=== PATIENT | female | born 1975 | race Caucasian/White ===

== ENCOUNTER 2017-01-06 15:36 | Inpatient (IN) | payer MEDICAID, OTHER ==
[~2017-01-06] VITALS: Ht 182.9 cm; Wt 85.3 kg
[2017-01-06] MEDS ORDERED: FERR325T6 PO (16:19)
[2017-01-06] MEDS ORDERED: PNV1TABL76 PO (16:19)
[2017-01-06] MEDS: LACTATED RINGERS 1,000 ML IV SCH ×2 (18:37→20:54)
[2017-01-06 19:09] LABS: CLARITY URINE CLEAR (CLEAR); COLOR URINE YELLOW (YELLOW); GLUCOSE URINE NEGATIVE (NEGATIVE); KETONES URINE 3+ (NEGATIVE); LEUKOCYTE ESTERASE URINE 3+ (NEGATIVE); NITRITE URINE NEGATIVE (NEGATIVE); OCCULT BLOOD URINE NEGATIVE (NEGATIVE); PH URINE 5.5 (4.5-8.0); PROTEIN URINE NEGATIVE (NEGATIVE); SPECIFIC GRAVITY URINE 1.017 (1.005-1.030); UROBILINOGEN URINE 0.2 E.U./dL (0.2-1.0)
[2017-01-06 19:10] LABS: BASOPHILS % 0.2 % (0.0-2.0); EOSINOPHILS % 0.3 % (0.0-5.0); HEMOGLOBIN. 9.8 g/dL (12.0-16.0); LYMPHOCYTES % 17.5 % (20.0-50.0); MEAN CORPUSCULAR HEMOGLOBIN 23.1 pg (28.0-32.0); MEAN CORPUSCULAR VOLUME 71.1 fL (81.0-99.0); MEAN PLATELET VOLUME 8.5 fl (7.4-10.4); MONOCYTES % 4.3 % (2.0-8.0); NEUTROPHILS % 77.7 % (40.0-76.0); PLATELET 267 x1000/uL (130-400); RED BLOOD CELL COUNT 4.22 mill/uL (4.2-5.4); RED CELL DISTRIBUTION WIDTH 18.8 % (11.6-14.6)
[2017-01-06 19:15] LABS: *AMPHETAMINES SCREEN URINE NEGATIVE (NEGATIVE); *BARBITURATES SCREEN URINE NEGATIVE (NEGATIVE); *BENZODIAZEPINES SCREEN URINE NEGATIVE (NEGATIVE); *COCAINE SCREEN URINE NEGATIVE (NEGATIVE); CANNABINOID URINE SCREEN NEGATIVE (NEGATIVE); METHADONE URINE SCREEN NEGATIVE (NEGATIVE); OPIATES URINE SCREEN NEGATIVE (NEGATIVE); PHENCYCLIDINE URINE SCREEN NEGATIVE (NEGATIVE)
[2017-01-06 19:16] LABS: PARTIAL THROMBOPLASTIN TIME 22.9 sec (23.4-31.0); PROTHROMBIN TIME 10.2 sec (9.4-11.6)
[2017-01-06 19:46] LABS: HEPATITIS B SURFACE ANTIGEN NEGATIVE
[2017-01-06 20:34] LABS: RUBELLA IGG > 500.0 IU/mL (4.99-10)
[2017-01-06] MEDS ORDERED: DEXT 5%/LR + PITOCIN 20UNITS/L 1,000 ML IV SCH (20:36)
[2017-01-06] MEDS ORDERED: LIDOCAINE HCL 1% 20ML VIAL (Pyxis) INJ INFIL SCH (20:45)
[2017-01-06] MEDS ORDERED: PENICILLIN G POTASSIUM 5 MMU in DEXT 5% WATER 100 ML IV SCH (20:45)
[2017-01-06] MEDS ORDERED: METHYLERGONOVINE MALEATE 0.2 MG/ML IM PRN (20:45)
[2017-01-06] MEDS ORDERED: CARBOPROST TROMETHAMINE 250 MCG/ML AMPUL IM PRN (20:45)
[2017-01-06] MEDS ORDERED: BUTORPHANOL TARTRATE 2 MG/ML VIAL IV PRN (20:45)
[2017-01-06] MEDS ORDERED: MISOPROSTOL 100MCG TABLET VG SCH (20:45)
[2017-01-06] MEDS ORDERED: DINOPROSTONE 10MG VAGINAL INSERT VG ONE (20:45)
[2017-01-06] MEDS ORDERED: PENICILLIN G POTASSIUM 2.5 MMU in DEXTROSE 5% WATER 50 ML IV SCH (20:45)
[2017-01-07] MEDS: LACTATED RINGERS 1,000 ML IV SCH ×2 (01:45→09:42)
[2017-01-07] MEDS: PENICILLIN G POTASSIUM 2.5 MMU in DEXTROSE 5% WATER 50 ML IV SCH ×2 (05:32→09:43)
[2017-01-07] MEDS ORDERED: DEXT 5%/LR + PITOCIN 20UNITS/L 1,000 ML IV SCH (14:17)
[2017-01-07] MEDS ORDERED: IBUPROFEN 800MG TABLET PO PRN (14:30)
[2017-01-07] MEDS ORDERED: LANOLIN OINT 0.25 GM TUBE TOP PRN (14:30)
[2017-01-07] MEDS ORDERED: RHO(D) IMMUNE GLOBULIN 300 MCG/SYR IM PRN (14:30)
[2017-01-07] MEDS ORDERED: METHYLERGONOVINE MALEATE 0.2 MG/ML IM PRN (14:30)
[2017-01-07] MEDS ORDERED: IBUPROFEN 400MG TABLET PO PRN (14:30)
[2017-01-07 14:55] VITALS: BP 103/60
[2017-01-07 16:00] VITALS: BP 94/52
[2017-01-07 23:35] VITALS: BP 102/54
[2017-01-08 06:54] LABS: BASOPHILS % 0.2 % (0.0-2.0); EOSINOPHILS % 0.8 % (0.0-5.0); HEMATOCRIT. 27.1 % (36.0-48.0); HEMOGLOBIN. 8.9 g/dL (12.0-16.0); LYMPHOCYTES % 27.1 % (20.0-50.0); MEAN CORPUSCULAR HEMOGLOBIN 23.5 pg (28.0-32.0); MEAN CORPUSCULAR VOLUME 71.4 fL (81.0-99.0); MEAN PLATELET VOLUME 8.4 fl (7.4-10.4); NEUTROPHILS % 65.9 % (40.0-76.0); PLATELET 235 x1000/uL (130-400); RED CELL DISTRIBUTION WIDTH 19.5 % (11.6-14.6)
[2017-01-08 07:34] VITALS: BP 91/50
[2017-01-08 15:31] VITALS: BP 92/51
[2017-01-08] MEDS ORDERED: METRONIDAZOLE 500MG TABLET PO SCH (16:45)
[2017-01-08 19:45] VITALS: BP 108/53
[2017-01-09] VITALS: BP 109/60
[2017-01-09 07:42] VITALS: BP 98/50
== END 2017-01-09 10:55 | disposition home or self-care (01) | DRG 560 ==
LOC: OBSVTOIN 15:36 → L&D 15:36 → 7EST PP/OB 01-07 15:50
PROVIDERS: ADMIT Obstetrics & Gynecology; ATTEND Obstetrics & Gynecology
PROC: 10E0XZZ Delivery of Products of Conception, External Approach (ICD-10-PCS; 2017-01-07)
PROC: 0HQ9XZZ Repair Perineum Skin, External Approach (ICD-10-PCS; principal; 2017-01-07 13:11)
DX: O70.0 First degree perineal laceration during delivery (principal); O41.03X0 Oligohydramnios, third trimester, not applicable or unspecified; D62 Acute posthemorrhagic anemia; O98.32 Other infections with a predominantly sexual mode of transmission complicating childbirth; A59.9 Trichomoniasis, unspecified; O99.03 Anemia complicating the puerperium; O09.523 Supervision of elderly multigravida, third trimester; Z37.0 Single live birth; Z3A.36 36 weeks gestation of pregnancy; Q90.9 Down syndrome, unspecified
CPT/HCPCS: 36415; 76815; 76818; 80305; 81001; 85025; 85610; 85730; 86592; 86703; 86762; 86850; 86900; 87340; 99281; J2540; J2590; J3490; J7060; J7120